=== PATIENT | male | born 1980 | race Caucasian/White ===

== ENCOUNTER → 2019-12-19 | Outpatient (CLI) | payer OTHER ==
[~2019-12-19] MED LIST: CYCL10TA9 PO; HYDR-3583 PO; IBP800T PO; LISI1TAB PO; METF-380 PO; TRAM50TA2 PO
--- NOTE | 2019-12-19 14:54 | Diagnostic Imaging Report ---
Procedure: US left lower extremity venous. Technique: Multiple real-time grayscale images were obtained over the left lower extremity in various projections. Additional duplex Doppler and color Doppler images were also obtained. Date: December 19, 2019. Indication: 39-year-old male, left lower extremity neuropathy. Comparison: None. Findings: The left common femoral vein, superficial femoral vein, popliteal vein, and posterior tibial veins are patent. The left peroneal vein is not well seen. The visualized portions of the left greater saphenous vein and deep femoral vein are patent. Impression: 1. No demonstrated left lower extremity deep venous thrombosis. Dictated by: Dictated on workstation # [id number]
== END ==
LOC: RAD 14:00
PROVIDERS: ATTEND Nurse Practitioner Family
DX: G57.92 Unspecified mononeuropathy of left lower limb (principal)